=== PATIENT | female | born 1970 | race Two or more races ===

== ENCOUNTER → 2017-04-08 | Outpatient (CLI) | payer BC ==
--- NOTE | 2017-04-08 10:10 | RAD ---
DATE: 04/08/2017 EXAM: DIGITAL SCREEN BILAT W/CAD HISTORY: Routine screening COMPARISON: 02/06/2016 This study was interpreted with the benefit of Computerized Aided Detection (CAD). The breast parenchyma shows scattered fibroglandular densities. Breast parenchyma level B. FINDINGS: No new or enlarging breast densities are seen. Numerous benign type calcifications are again noted. No suspicious microcalcifications have developed. Benign-appearing lymph node type densities are present in the axillary regions. IMPRESSION: Stable mammograms without evidence of malignancy. BI-RADS CATEGORY: 2 BENIGN FINDING(S) RECOMMENDED FOLLOW-UP: 12M 12 MONTH FOLLOW-UP PQRS compliance statement: Patient information was entered into a reminder system with a target due date for the next mammogram. Mammography is a sensitive method for finding small breast cancers, but it does not detect them all and is not a substitute for careful clinical examination. A negative mammogram does not negate a clinically suspicious finding and should not result in delay in biopsying a clinically suspicious abnormality. "Our facility is accredited by the [employer] Mammography Program."
== END | disposition home or self-care (01) ==
LOC: MAMMO 08:56
PROVIDERS: ATTEND Internal Medicine
DX: Z12.31 Encounter for screening mammogram for malignant neoplasm of breast (principal)
CPT/HCPCS: G0202; 77067

== ENCOUNTER → 2017-08-23 | Outpatient (CLI) | payer BC | END | disposition home or self-care (01) | LOC: RAD 16:39 | DX: J40 Bronchitis, not specified as acute or chronic (principal); R04.2 Hemoptysis | CPT/HCPCS: 71046 ==

== ENCOUNTER → 2017-09-17 | Day surgery (SDC) | payer BC ==
[~2017-09-17] MED LIST: IV RINGERS,LACTATED 1000ML 1,000 ML IV; LIDOCAINE 1% PF 2 ML VIAL. ID; MORPHINE SULFATE 4 MG/ML DISP.SYRIN. IV; ONDANSETRON PF 4 MG/2 ML VIAL. IV; PROCHLORPERAZINE 10 MG/2 ML VIAL. IV; PROPOFOL 20 ML IV; fentaNYL PF VIAL 100 MCG/2 ML VIAL IV
[2017-09-17 10:20] LABS: NEG OBC UR NEG; POS OBC UR POS; U PREG PATIENT NEGATIVE (NEG)
== END | disposition home or self-care (01) ==
LOC: ENDOS 09:42
DX: K21.0 Gastro-esophageal reflux disease with esophagitis (principal); F41.0 Panic disorder [episodic paroxysmal anxiety]; E78.5 Hyperlipidemia, unspecified; Z79.899 Other long term (current) drug therapy; Z88.8 Allergy status to other drugs, medicaments and biological substances; Z88.5 Allergy status to narcotic agent
CPT/HCPCS: 43239; 81025; 88305; J2704

== ENCOUNTER 2019-05-08 16:21 | Emergency (ER) | payer SELFPAY ==
[2019-05-08 16:40] VITALS: BP 189/86
[2019-05-08] MEDS ORDERED: DEXAMETHASONE 4 MG TABLET PO STA (16:59)
[2019-05-08] MEDS ORDERED: IPRATRPIUM/ALBUTEROL 0.5/2.5MG 3 ML NEBU. NEB ONE (17:00)
--- NOTE | 2019-05-08 17:04 | PHYS DOC ---
Past Medical History Alcohol Use: None Adult General Chief Complaint Chief Complaint: COUGH HPI HPI Patient is a 48 year old female who presents with cough as been ongoing for 2 months. Patient also been having some expiratory wheezing. States that she has taken over the counter medication over the last couple weeks but that has not been helping. Review of Systems Review of Systems Constitutional: Denies fever or chills [] Eyes: Denies change in visual acuity, redness, or eye pain [] HENT: Denies nasal congestion or sore throat [] Respiratory: Reports cough and shortness of breath [] Cardiovascular: No additional information not addressed in HPI [] GI: Denies abdominal pain, nausea, vomiting, bloody stools or diarrhea [] : Denies dysuria or hematuria [] Musculoskeletal: Denies back pain or joint pain [] Integument: Denies rash or skin lesions [] Neurologic: Denies headache, focal weakness or sensory changes [] Endocrine: Denies polyuria or polydipsia [] Complete systems were reviewed and found to be within normal limits, except as documented in this note. Current Medications Current Medications Current Medications Medications (Trade) Dose Ordered Sig/Estefani Start Time Stop Time Status Last Admin Dose Admin Albuterol/ Ipratropium (Duoneb) 3 ml 1X ONCE 05/08/19 17:00 05/08/19 17:02 DC 05/08/19 17:00 3 ML Dexamethasone (Decadron) 10 mg 1X STAT 05/08/19 16:59 05/08/19 17:02 DC 05/08/19 16:59 10 MG Allergies Allergies Allergies Coded Allergies Type Severity Reaction Last Updated Verified aspirin Allergy Mild 09/17/17 Yes ibuprofen Allergy Mild 09/17/17 Yes Physical Exam Physical Exam Constitutional: Well developed, well nourished, no acute distress, non-toxic appearance. [] HENT: Normocephalic, atraumatic, bilateral external ears normal, oropharynx moist, no oral exudates, nose normal. [] Eyes: PERRLA, EOMI, conjunctiva normal, no discharge. [] Neck: Normal range of motion, no tenderness, supple, no stridor. [] Cardiovascular:Heart rate regular rhythm, no murmur [] Lungs & Thorax: Bilateral breath sounds have minor expiratory wheezing. Skin: Warm, dry, no erythema, no rash. [] Neurologic: Alert and oriented X 3, normal motor function, normal sensory function, no focal deficits noted. [] Psychologic: Affect normal, judgment normal, mood normal. [] Current Patient Data Vital Signs Vital Signs Date Time Temp Pulse Resp B/P (MAP) Pulse Ox O2 Delivery O2 Flow Rate FiO2 05/08/19 17:04 95 Room Air 05/08/19 16:40 98.3 70 16 189/86 (120) 98.3 EKG EKG [] Radiology/Procedures Radiology/Procedures [] Course & Med Decision Making Course & Med Decision Making Pertinent Labs and Imaging studies reviewed. (See chart for details) Will give Duoneb, Decadron, and get X-ray. X-ray shows infiltrate to Left lower lobe. Will place on Doxycycline and place on inhaler. Dragon Disclaimer Dragon Disclaimer This electronic medical record was generated, in whole or in part, using a voice recognition dictation system. Departure Departure Impression: Primary Impression: Pneumonia Disposition: 01 HOME, SELF-CARE Condition: STABLE Referrals: POLY SCRUGGS MD (PCP) Patient Instructions: Pneumonia, Adult Additional Instructions: Thank you for visiting [facility]. We appreciate you trusting us with your care. If any additional problems come up don't hesitate to return to visit us. Please follow up with your primary care provider so they can plan additional care if needed and know about the problem that you had. If symptoms worsen come back to the Emergency Department. Any concerning symptoms that start such as chest pain, shortness of air, weakness or numbness on one side of the body, running high fevers or any other concerning symptoms return to the ER. You have been prescribed an antibiotic today to help fight your infection. Please take all of the antibiotic as directed. If after 48 hours the infection is not improving, please return for more care. If the infection worsens, return to ER for additional care. Please fill your medications at any pharmacy and follow the prescription instructions. Please follow up Dr. Scruggs in a week. Scripts Albuterol Sulfate (PROAIR HFA INHALER) 8.5 Gm Hfa.aer.ad 2 PUFF IH PRN Q4-6HRS PRN for wheezing for 21 Days, #1 INHALER 0 Refills Prov: ANGELA PRIDE RAIL GANG SUPERVISOR 05/08/19 Doxycycline Hyclate (DOXYCYCLINE HYCLATE) 100 Mg Capsule 1 CAP PO BID for 10 Days, #20 CAP Prov: ANGELA PRIDE APRN 05/08/19 Problem Qualifiers Primary Impression: Pneumonia Pneumonia type: due to unspecified organism Laterality: left Lung location: lower lobe of lung Qualified Codes: J18.9 - Pneumonia, unspecified organism ANGELA PRIDE RAIL GANG SUPERVISOR May 08, 2019 17:04
[2019-05-08] MEDS ORDERED: ALBU2.5V8 IH (17:37)
[2019-05-08] MEDS ORDERED: DOXY100C2 PO (17:37)
--- NOTE | 2019-05-08 17:46 | RAD ---
PA and lateral chest. HISTORY: Cough PA and lateral views were taken of the chest. Heart is normal in size. There is pleural thickening or trace of pleural effusion on the left. There are mild left lung infiltrates more prominent than the old study from July 2017. There is not evidence of heart failure. IMPRESSION: 1. Mild left lower lobe infiltrates. Electronically signed by: Baljit Singh MD (05/08/2019 5:43 PM) [id number]
== END 2019-05-08 18:16 | disposition home or self-care (01) ==
LOC: ER 16:21
DX: J18.9 Pneumonia, unspecified organism (principal); R05 Cough; Z88.6 Allergy status to analgesic agent
CPT/HCPCS: 71046; 94640; 99284; J7620; J8540

== ENCOUNTER 2020-12-16 17:09 | Emergency (ER) | payer OTHER ==
[~2020-12-16] VITALS: Ht 154.9 cm; Wt 70.9 kg
[~2020-12-16 17:09] MED LIST changes: +ALBU2.5V8 IH; +DOXY100C3 PO; -IV RINGERS,LACTATED 1000ML 1,000 ML IV; -LIDOCAINE 1% PF 2 ML VIAL. ID; -MORPHINE SULFATE 4 MG/ML DISP.SYRIN. IV; -ONDANSETRON PF 4 MG/2 ML VIAL. IV; -PROCHLORPERAZINE 10 MG/2 ML VIAL. IV; -PROPOFOL 20 ML IV; -fentaNYL PF VIAL 100 MCG/2 ML VIAL IV
[2020-12-16] MEDS ORDERED: ONDANSETRON PF 4 MG/2 ML VIAL. IVP ONE (19:45)
[2020-12-16] MEDS ORDERED: FAMOTIDINE 20 MG/2 ML VIAL IVP ONE (19:45)
[2020-12-16] MEDS ORDERED: IV NORMAL SALINE 1000ML BAG 1,000 ML IV ONE (19:45)
--- NOTE | 2020-12-16 19:47 | PHYS DOC ---
Past Medical History Smoking Status: Never Smoker Alcohol Use: None Drug Use: None General Adult EDM: Chief Complaint: ABDOMINAL PAIN HPI: HPI: Patient is a 50 year old female who presents with 2 day history of epigastric abdominal pain that worsened today. Currently rates her pain as 10/10. States it now radiates to her back bilaterally. Also reports associated nausea and diarrhea. No alleviating/aggravating factors. Denies vomiting, chest pain, shortness of breath, or hematochezia. Review of Systems: Review of Systems: Constitutional: Denies fever or chills Eyes: Denies redness or eye pain HENT: Denies nasal congestion or sore throat Respiratory: Denies cough or shortness of breath Cardiovascular: Denies chest pain or palpitations GI: Reports epigastric pain, nausea, and diarrhea. Denies vomiting or hematochezia : Denies dysuria or hematuria Musculoskeletal: Denies back pain or joint pain Integument: Denies rash or skin lesions Neurologic: Denies headache, focal weakness or sensory changes Complete systems were reviewed and found to be within normal limits, except as documented in this note. Heart Score: C/O Chest Pain: N/A Allergies: Allergies: Allergies Coded Allergies Type Severity Reaction Last Updated Verified aspirin Allergy Mild 09/17/17 Yes ibuprofen Allergy Mild 09/17/17 Yes Physical Exam: PE: Constitutional: Well developed, well nourished, no acute distress, non-toxic appearance HENT: Normocephalic, atraumatic Eyes: PERRL, EOMI, conjunctiva normal, no discharge Neck: Normal range of motion, no tenderness, supple Lungs & Thorax: No respiratory distress, equal chest rise and fall Abdomen: Moderate epigastric tenderness with palpation. Soft, no otherwise nontender. No rebound tenderness. Normoactive bowel sounds x 4. Skin: Warm, dry, no erythema, no rash Back: No tenderness, no CVA tenderness Extremities: No tenderness, ROM intact, no edema Neurologic: Alert and oriented X 3, normal motor function, normal sensory function, no focal deficits noted Psychologic: Affect normal, judgment normal Current Patient Data: Labs: Laboratory Tests Test 12/16/20 18:54 POC Urine HCG, Qualitative Hcg negative (Negative) EKG: EK: 63 BPM, normal sinus rhythm, no ST segment elevation, QRS 78ms, QT/QTc 368/379ms Radiology/Procedures: Radiology/Procedures: PROCEDURE: CT ABD PELV W/ IV CONTRST ONLY CT abdomen pelvis with contrast dated 12/16/2020. No comparison available. Clinical data indication: Abdominal pain nausea. TECHNIQUE: Contiguous axial imaging the M pelvis performed after the administration of 75 cc Omnipaque 300. One or more of the following individualized dose reduction techniques were utilized for this examination: 1. Automated exposure control 2. Adjustment of the mA and/or kV according to patient size 3. Use of iterative reconstruction technique. FINDINGS: Limited images of lung bases are clear. Heart size within normal limits. No pleural or pericardial effusion. There is some mild linear scar or atelectasis at the left base. Liver, spleen, pancreas, adrenal glands, gallbladder unremarkable. There is a 5 mm calcific stone at the lower pole right kidney. Kidneys are otherwise symmetric. No ureteral stone or hydronephrosis. Unopacified GI tract normal in caliber and contour. No focal bowel wall thickening. No inflammatory stranding in the mesentery. No ascites or lymphadenopathy. The appendix is not clearly identified. No inflammatory changes in the right lower quadrant. Images of pelvis show heterogeneous uterus with nodular focus at the left uterine body that measures up to 4.8 cm. Urinary bladder is nondistended. No free fluid or lymphadenopathy. Bone windows show no acute findings. Mild multilevel spondylosis. IMPRESSION: 1. No acute abnormality of abdomen or pelvis. 2. Right-sided nephrolithiasis, nonobstructive. 3. Fibroid uterus. Electronically signed by: Mich Hdez MD (12/16/2020 8:57 PM) [facility] Course & Med Decision Making: Course & Med Decision Making Patient presents with abdominal pain and nausea. Labs and imaging obtained and posted to chart. Administered Zofran, Pepcid, and IV fluids with improvement of symptoms. Patient stable for discharge with outpatient follow-up with PCP/GI. Provided appropriate referrals. Discussed findings and plan with patient, who acknowledges understanding and agreement. Gilberto Disclaimer: Gilberto Disclaimer: This electronic medical record was generated, in whole or in part, using a voice recognition dictation system. Departure Departure Impression: Primary Impression: Abdominal pain Qualified Codes: R10.13 - Epigastric pain Additional Impression: Nausea Disposition: HOME / SELF CARE / HOMELESS Condition: STABLE Referrals: BJORN WELLS DIESEL RETROFIT DESIGNER-C (PCP) ALIYA FINK MD Patient Instructions: Abdominal Pain (Nonspecific), Nausea, Adult, [facility] Scripts Hyoscyamine Sulfate (LEVSIN-SL) 0.125 Mg Tab.subl 0.125 MG SL Q4-6HRS PRN for PAIN, #14 TAB Prov: MICH REYNA DO 12/16/20 Famotidine (PEPCID) 20 Mg Tablet 20 MG PO BID, #20 TAB Prov: MICH REYNA DO 12/16/20 Ondansetron (ONDANSETRON ODT) 4 Mg Tab.rapdis 1 TAB PO PRN Q6-8HRS PRN for NAUSEA, #16 TAB Prov: MICH REYNA DO 12/16/20 MICH REYNA DO Dec 16, 2020 19:47
[2020-12-16 19:59] LABS: BASO # 0.1 x10^3/uL (0.0-0.2); BASO % 1 % (0-3); EOS # 0.2 x10^3/uL (0.0-0.7); EOS % 2 % (0-3); HEMOGLOBIN 12.8 g/dL (12.0-15.5); LYMPH % 14 % (24-48); MEAN CORPUSCULAR HEMOGLOBIN 31 pg (25-35); MEAN CORPUSCULAR HGB CONC 34 g/dL (31-37); MEAN CORPUSCULAR VOLUME 91 fL (79-100); MONO % 7 % (0-9); NEUT # 10.8 x10^3/uL (1.8-7.7); NEUT % 76 % (31-73); PLATELET COUNT 322 x10^3/uL (140-400); RED BLOOD COUNT 4.16 x10^6/uL (3.50-5.40); RED CELL DISTRIBUTION WIDTH 12.9 % (11.5-14.5); WHITE BLOOD COUNT 14.2 x10^3/uL (4.0-11.0)
[2020-12-16 20:02] LABS: BILIRUBIN,URINE NEGATIVE (NEG); CLARITY,URINE CLEAR; COLOR,URINE YELLOW; NITRITE,URINE NEGATIVE (NEG); PH,URINE 6.5 (<5.0-8.0); PROTEIN,URINE NEGATIVE (NEG-TRACE); UROBILINOGEN,URINE 0.2 mg/dL (0.2 mg/dL)
[2020-12-16 20:13] LABS: CALCIUM 9.1 mg/dL (8.5-10.1); CREATININE 0.7 mg/dL (0.6-1.0); GFR 88.6; POTASSIUM 4.5 mmol/L (3.5-5.1)
[2020-12-16 20:16] LABS: BACTERIA,URINE 0 /HPF (0-FEW); WBC,URINE 0 /HPF (0-4)
[2020-12-16 20:19] LABS: ALBUMIN 3.9 g/dL (3.4-5.0); MAGNESIUM 2.4 mg/dL (1.8-2.4); TOTAL BILIRUBIN 0.5 mg/dL (0.2-1.0); TOTAL PROTEIN 7.7 g/dL (6.4-8.2)
[2020-12-16] MEDS ORDERED: CONTRAST GIVEN. MC PRN (20:30)
[2020-12-16] MEDS ORDERED: IOHEXOL 300 MG/ML 100ML VIAL. IV ONE (20:30)
--- NOTE | 2020-12-16 21:00 | RAD ---
CT abdomen pelvis with contrast dated 12/16/2020. No comparison available. Clinical data indication: Abdominal pain nausea. TECHNIQUE: Contiguous axial imaging the M pelvis performed after the administration of 75 cc Omnipaque 300. One or more of the following individualized dose reduction techniques were utilized for this examinat ion: 1. Automated exposure control 2. Adjustment of the mA and/or kV according to patient size 3. Use of iterative reconstruction technique. FINDINGS: Limited images of lung bases are clear. Heart size within normal limits. No pleural or pericardial ef fusion. There is some mild linear scar or atelectasis at the left base. Liver, spleen, pancreas, adrenal glands, gallbladder unremarkable. There is a 5 mm calcific stone at the lower pole right kidney. Kidneys are otherwise symmetric. No ur eteral stone or hydronephrosis. Unopacified GI tract normal in caliber and contour. No focal bowel wall thickening. No inflammatory s tranding in the mesentery. No ascites or lymphadenopathy. The appendix is not clearly identified. No inflammatory changes in the right lower quadrant. Images of pelvis show heterogeneous uterus with nodular focus at the left uterine body that measures up to 4.8 cm. Urinary bladder is nondistended. No free fluid or lymphadenopathy. Bone windows show no acute findings. Mild multilevel spondylosis. IMPRESSION: 1. No acute abnormality of abdomen or pelvis. 2. Right-sided nephrolithiasis, nonobstructive. 3. Fibroid uterus. Electronically signed by: Mich Hdez MD (12/16/2020 8:57 PM) [facility]
[2020-12-16] MEDS ORDERED: ONDA4TAB12 PO (21:44)
[2020-12-16] MEDS ORDERED: HYOS0.1265 SL (21:44)
[2020-12-16] MEDS ORDERED: FAMO-63 PO (21:44)
[2020-12-16 22:07] VITALS: BP 140/65
--- NOTE | 2020-12-17 03:08 | EKG ---
[facility] [address] [place] [address] Test Date: 2020-12-16 Test Time: 20:07:52 Pat Name: VIOLA POOL Department: Room: Gender: F Massage Therapist: : 1970 Requested By: ANGELA REYNA Order Number: [id number] Reading MD: Measurements Intervals [place] Rate: 63 P: 140 AK: 200 QRS: 133 QRSD: 78 T: 129 QT: 368 QTc: 379 Interpretive Statements SINUS RHYTHM ABNORMAL RIGHT AXIS DEVIATION QRS(T) CONTOUR ABNORMALITY CONSISTENT WITH HIGH LATERAL INFARCT AGE UNDETERMINED ABNORMAL ECG RI6.01 No previous ECG available for comparison
== END 2020-12-16 22:18 | disposition home or self-care (01) ==
LOC: ER 17:09
DX: R10.13 Epigastric pain (principal); R11.0 Nausea; R19.7 Diarrhea, unspecified; Z88.6 Allergy status to analgesic agent; Z88.8 Allergy status to other drugs, medicaments and biological substances
CPT/HCPCS: 36415; 74177; 80053; 81001; 81025; 82553; 83690; 83735; 84484; 85025; 93005; 96361; 96374; 96375; 99285; J2405; J3490; J7030; Q9967

== ENCOUNTER → 2021-01-27 | Day surgery (SDC) | payer OTHER ==
[~2021-01-27] VITALS: Ht 152.4 cm; Wt 71.0 kg
[~2021-01-27] MED LIST changes: +FAMO-63 PO; +HYDROmorphone 2 MG/ML VIAL IVP PRN; +HYOS0.1265 SL; +IV RINGERS,LACTATED 1000ML 1,000 ML IV SCH; +LIDOCAINE 2% PF 5 ML VIAL. ONE; +MORPHINE SULFATE 2 MG/ML INJ. IVP PRN; +OMEP20CA16 PO; +ONDA4TAB12 PO; +PROCHLORPERAZINE 10 MG/2 ML VIAL. IVP PRN; +PROPOFOL 10 MG/ML (20ML) VIAL. IV ONE; +fentaNYL PF VIAL 100 MCG/2 ML VIAL IVP PRN
[2021-01-27 09:19] VITALS: BP 143/63
[2021-01-27 10:25] VITALS: BP 105/58
--- NOTE | 2021-01-27 15:39 | HP ---
ADMIT DATE: 01/27/2021 UPDATED HISTORY AND PHYSICAL REASON: Dysphagia and screening. HISTORY OF PRESENT ILLNESS: A 50-year-old female whose past medical history is significant for reflux, is seen with epigastric abdominal pain leading to Emergency Room visit. She has noted some intermittent sticking of solids and underwent dilatation and biopsy in 2018 with improvement in her symptoms and at that time, reflux esophagitis was encountered. She was placed on omeprazole and to famotidine. In addition, colorectal screening is requested due to age. There is no family history of colon cancer, but there is a history of stomach cancer with her father. No change in bowel habits. No bleeding or additional complaints. PAST MEDICAL HISTORY: Dysphagia and GERD. ALLERGIES: ASPIRIN AND IBUPROFEN. MEDICATIONS: Presently include omeprazole 20 mg daily. FAMILY HISTORY: Significant for breast cancer with her mother and stomach cancer with her father. SOCIAL HISTORY: She is a nonsmoker, social drinker. PAST SURGICAL HISTORY: Breast surgery. REVIEW OF SYSTEMS: Per records. PHYSICAL EXAMINATION: GENERAL: Reveals a well-nourished, well-developed female. VITAL SIGNS: Temperature is 97.2, pulse 56, respiratory rate is 20. LUNGS: Clear. CARDIOVASCULAR: Reveals an S1, S2, without S3, S4 or appreciable murmur. ABDOMEN: Reveals a soft abdomen, normal bowel sounds, without appreciable hepatosplenomegaly. IMPRESSION: Dysphagia. Differential includes gastroesophageal reflux disease, Schatzki's ring, achalasia, malignancy and/or eosinophilic esophagitis. Therefore, recommend upper endoscopy, possible biopsy, dilatation. Colorectal screening is warranted at this time. Risks and benefits were previously discussed and the patient is willing to proceed at this time. JOEL DR: Naresh TID: [id number]
--- NOTE | 2021-01-30 14:06 | PATHOLOGY ---
[facility] Accession Number: [id number] . 01 Material submitted: . PART A: esophagus - DISTAL ESOPHAGUS BIOPSY. Modifiers: distal PART B: sigmoid colon - SIGMOID POLYP . 01 Clinical history: . DYSPHAGIA EGD . 02 Diagnosis: A. Esophageal biopsies, distal esophagus: - Reflux esophagitis. . B. Colon biopsies, sigmoid polyp: - Tubular adenoma. (JPM:patrick; 01/30/2021) QMS 01/30/2021 0906 Local . 02 Comment: Sections of the distal esophageal biopsy reveal segments of tangentially oriented hyperplastic squamous esophageal mucosa and esophagogastric mucosa showing chronic inflammation. The findings are supportive of the diagnosis of reflux esophagitis. There is no evidence of Encarnacion's change, dysplasia, or malignancy. . Sections of the sigmoid colon biopsy reveal a tubular adenoma showing no high grade dysplasia or evidence of malignancy. (JPM:patrick; 01/30/2021) . 02 Electronically signed: . Poli House MD, Pathologist NPI- [id number] . 01 Gross description: . A. The specimen is received in formalin, labeled "Isabel Sherwood, distal esophagus BX". It consists of multiple hernandez-white, irregular soft tissue fragments measuring 0.7 x 0.5 x 0.1 cm in aggregate. The specimen is entirely submitted between sponges in A1. . B. The specimen is received in formalin, labeled "Isabel Sherwood, sigmoid polyp". It consists of 3 hernandez irregular soft tissue fragments ranging from 0 point to 0.6 cm in greatest dimension. The specimen is entirely submitted between sponges in B1. (MRF; 01/27/2021) MFE/MFE 01/30/2021 0903 Local . 02 Pathologist provided ICD-10: K21.00, D12.5 . 02 CPT . 046640, 514486 Specimen Comment: A courtesy copy of this report has been sent to [phone], [phone] Specimen Comment: [id number] Specimen Comment: Report sent to / DR WELLS Specimen Comment: A duplicate report has been generated due to demographic updates. Performed at: 01 [facility] [address] [facility] [address], [place] [id number] MD Shaun Reyes MD Phone: [phone] Performed at: 02 [facility] [address] [place], [place] [id number] MD Poli House MD Phone: [phone]
== END | disposition home or self-care (01) ==
LOC: ENDOS 08:50
PROVIDERS: ATTEND Internal Medicine Gastroenterology
DX: Z12.11 Encounter for screening for malignant neoplasm of colon (principal); R13.10 Dysphagia, unspecified; D12.5 Benign neoplasm of sigmoid colon; K21.00 Gastro-esophageal reflux disease with esophagitis, without bleeding; K63.89 Other specified diseases of intestine; K31.89 Other diseases of stomach and duodenum; K64.0 First degree hemorrhoids; R10.13 Epigastric pain; F41.9 Anxiety disorder, unspecified; Z79.899 Other long term (current) drug therapy; Z98.890 Other specified postprocedural states; Z80.3 Family history of malignant neoplasm of breast; Z80.0 Family history of malignant neoplasm of digestive organs
CPT/HCPCS: 43239; 43450; 45380; J2704